=== PATIENT | male | born 1935 | race Caucasian/White ===

== ENCOUNTER → 2020-05-15 | Day surgery (SDC) | payer MEDICARE ==
[~2020-05-15] VITALS: Ht 180.3 cm; Wt 74.8 kg
[~2020-05-15] MED LIST: APPLE CIDER VI600 MG PO; ASPIRIN EC81 MG PO; CIPRO500 MG PO; FLAX OIL1000 MG PO; FLEXERIL5 MG PO; FLOMAX 0.4 MG0.4 MG PO; GABAPENTIN100 MG PO; LIPITOR40 MG PO; PREDNISONE2.5 MG PO; PREDNISONE5 MG PO; SUPER COLON CLEANSE PO; TAMSULOSIN HCL0.4 MG PO; TRAMADOL HCL50 MG PO; URINOZINC PROS1 EACH PO; VOLTAREN ARTHRI20 GM TOP; [UNRECOGNIZED DRUG - OTHER] PO
== END | disposition home or self-care (01) ==
LOC: FAS 06:05
DX: D12.5 Benign neoplasm of sigmoid colon (principal); K57.31 Diverticulosis of large intestine without perforation or abscess with bleeding; I25.10 Atherosclerotic heart disease of native coronary artery without angina pectoris; E85.9 Amyloidosis, unspecified; J61 Pneumoconiosis due to asbestos and other mineral fibers; Z85.6 Personal history of leukemia; Z86.010 Personal history of colon polyps; Z87.891 Personal history of nicotine dependence; Z79.899 Other long term (current) drug therapy; Z88.0 Allergy status to penicillin; Z95.1 Presence of aortocoronary bypass graft
CPT/HCPCS: 88305; J2704; J7120

== ENCOUNTER 2020-08-17 13:23 | Emergency (ER) | payer MEDICARE ==
[~2020-08-17 13:23] MED LIST changes: -CIPRO500 MG PO; -PREDNISONE2.5 MG PO; -VOLTAREN ARTHRI20 GM TOP
[2020-09-07] MEDS ORDERED: TRAMADOL HCL50 MG PO (16:52)
[2020-10-23] MEDS ORDERED: PREDNISONE2.5 MG PO (13:02)
[2020-10-23] MEDS ORDERED: VOLTAREN ARTHRI20 GM TOP (13:20)
== END 2020-08-17 15:39 | disposition home or self-care (01) ==
LOC: FER 13:23
DX: N40.1 Benign prostatic hyperplasia with lower urinary tract symptoms (principal); R33.8 Other retention of urine; Z88.0 Allergy status to penicillin
CPT/HCPCS: 87088

== ENCOUNTER 2020-09-24 17:02 | Emergency (ER) | payer MEDICARE ==
[2020-09-24 19:02] LABS: BILIRUBIN NEGATIVE (NEGATIVE); BLOOD 3+ Ery/uL (NEGATIVE); CLARITY CLOUDY (CLEAR); COLOR YELLOW (YELLOW); GLUCOSE (U) NORMAL (NORMAL); LEUKOCYTES 3+ Leu/uL (NEGATIVE); NITRITE POSITIVE (NEGATIVE); PROTEIN TRACE (LOW) mg/dL (NEGATIVE); SPECIFIC GRAVITY <=1.005 (1.001-1.030); UROBILINOGEN 0.2 mg/dL (0.2-1.0)
[2020-09-24 19:06] LABS: BACTERIA 4+; MUCOUS MODERATE; URINARY WBC TNTC
[2020-10-23] MEDS ORDERED: PREDNISONE2.5 MG PO (13:02)
[2020-10-23] MEDS ORDERED: VOLTAREN ARTHRI20 GM TOP (13:20)
== END 2020-09-24 19:15 | disposition home or self-care (01) ==
LOC: FER 17:02
PROVIDERS: Emergency Medicine
DX: R33.9 Retention of urine, unspecified (principal); J44.9 Chronic obstructive pulmonary disease, unspecified; Z95.1 Presence of aortocoronary bypass graft; Z85.6 Personal history of leukemia; Z88.0 Allergy status to penicillin
CPT/HCPCS: 81001; 87088

== ENCOUNTER 2020-10-03 03:52 | Emergency (ER) | payer MEDICARE ==
[2020-10-03 04:33] LABS: BILIRUBIN NEGATIVE (NEGATIVE); BLOOD 2+ Ery/uL (NEGATIVE); CLARITY CLEAR (CLEAR); COLOR YELLOW (YELLOW); GLUCOSE (U) NORMAL (NORMAL); LEUKOCYTES 1+ Leu/uL (NEGATIVE); NITRITE NEGATIVE (NEGATIVE); PROTEIN 1+ mg/dL (NEGATIVE); SPECIFIC GRAVITY 1.025 (1.001-1.030); UROBILINOGEN 0.2 mg/dL (0.2-1.0)
[2020-10-03 04:43] LABS: BACTERIA 2+; CALCIUM OXALATE CRYSTALS MODERATE; MUCOUS TRACE; URINARY RBC 20-50; URINARY WBC TNTC
[2020-10-23] MEDS ORDERED: PREDNISONE2.5 MG PO (13:02)
[2020-10-23] MEDS ORDERED: VOLTAREN ARTHRI20 GM TOP (13:20)
== END 2020-10-03 05:35 | disposition home or self-care (01) ==
LOC: FER 03:52
PROVIDERS: Emergency Medicine
DX: R33.9 Retention of urine, unspecified (principal); Z98.890 Other specified postprocedural states; Z87.442 Personal history of urinary calculi; Z88.0 Allergy status to penicillin
CPT/HCPCS: 81001; 87088; 99283

== ENCOUNTER 2020-10-06 18:29 | Emergency (ER) | payer MEDICARE ==
[2020-10-06 20:48] LABS: BILIRUBIN NEGATIVE (NEGATIVE); BLOOD 3+ Ery/uL (NEGATIVE); CLARITY HAZY (CLEAR); COLOR YELLOW (YELLOW); GLUCOSE (U) NORMAL (NORMAL); LEUKOCYTES 1+ Leu/uL (NEGATIVE); NITRITE NEGATIVE (NEGATIVE); PROTEIN 2+ mg/dL (NEGATIVE); SPECIFIC GRAVITY >=1.030 (1.001-1.030); UROBILINOGEN 0.2 mg/dL (0.2-1.0); pH 5.5 (5.0-9.0)
[2020-10-06 20:55] LABS: URINARY WBC TNTC
[2020-10-06 20:56] LABS: AMORPHOUS URATES CRYSTALS TRACE; BACTERIA 2+; CALCIUM OXALATE CRYSTALS LARGE
[2020-10-06] MEDS ORDERED: CIPRO500 MG PO (21:09)
[2020-10-23] MEDS ORDERED: PREDNISONE2.5 MG PO (13:02)
[2020-10-23] MEDS ORDERED: VOLTAREN ARTHRI20 GM TOP (13:20)
== END 2020-10-06 21:35 | disposition home or self-care (01) ==
LOC: FER 18:29
PROVIDERS: Emergency Medicine Emergency Medical Services
DX: T83.028A Displacement of other urinary catheter, initial encounter (principal); R33.9 Retention of urine, unspecified; N30.00 Acute cystitis without hematuria; Z88.0 Allergy status to penicillin; Z98.890 Other specified postprocedural states; Y84.6 Urinary catheterization as the cause of abnormal reaction of the patient, or of later complication, without mention of misadventure at the time of the procedure
CPT/HCPCS: 81001; 87088

== ENCOUNTER 2021-02-03 17:05 | Emergency (ER) | payer MEDICARE ==
[~2021-02-03 17:05] MED LIST changes: +CIPRO500 MG PO; +PREDNISONE2.5 MG PO; +VOLTAREN ARTHRI20 GM TOP
[2021-02-03 19:53] LABS: BILIRUBIN NEGATIVE (NEGATIVE); BLOOD TRACE-INTACT Ery/uL (NEGATIVE); CLARITY CLEAR (CLEAR); COLOR YELLOW (YELLOW); GLUCOSE (U) NORMAL (NORMAL); LEUKOCYTES 2+ Leu/uL (NEGATIVE); NITRITE POSITIVE (NEGATIVE); PROTEIN NEGATIVE (NEGATIVE); SPECIFIC GRAVITY 1.025 (1.001-1.030); UROBILINOGEN 0.2 mg/dL (0.2-1.0); pH 5.5 (5.0-9.0)
[2021-02-03 19:57] LABS: BACTERIA 3+; URINARY WBC TNTC
[2021-02-03 20:43] LABS: BASOPHIL 0 % (0-2); EOSINOPHIL 0.1 % (0-7); HCT 41.7 % (42.0-52.0); HGB 13.6 g/dl (13.2-18.0); LYMPHOCYTE 46.7 % (15-48); MCH 31.9 pg (25.0-31.0); MCHC 32.6 g/dL (32.0-36.0); MCV 97.9 fL (78.0-100.0); MPV 9.3 fL (6.0-9.5); NRBC 0; PLT 162 K/uL (150-400); RBC 4.26 M/uL (4.70-6.00); RDW 13.7 % (11.5-14.0); WBC 8.4 K/uL (4.0-10.5)
[2021-02-03 21:19] LABS: INFLUENZA A NAA NEGATIVE (NEGATIVE); LACTIC ACID 0.9 mmol/L (0.4-1.9)
[2021-02-03 21:21] LABS: CORONAVIRUS 2019 SARS-COV-2 POSITIVE (NEGATIVE); PRO-BNP 169 pg/mL (<450)
[2021-02-03 21:26] LABS: ALBUMIN 3.3 g/dL (3.4-5.0); BILIRUBIN - TOTAL 0.4 mg/dL (0.2-1.0); BUN/CREAT RATIO (CALC) 17.9 RATIO; CREATININE 0.78 mg/dL (0.67-1.17); GLOBULIN (CALCULATION) 3.1 g/dL; TOTAL PROTEIN 6.4 g/dL (6.4-8.2)
[2021-02-03] MEDS ORDERED: TESSALON PERLE100 M1 PO (23:31)
[2021-02-03] MEDS ORDERED: CEFDINIR300 MG PO (23:31)
[2021-02-03] MEDS ORDERED: DEXAMETHASONE 2M2 MG PO (23:32)
== END 2021-02-04 01:15 | disposition home or self-care (01) ==
LOC: FER 17:05
PROVIDERS: Emergency Medicine Emergency Medical Services; Internal Medicine
DX: U07.1 COVID-19 (principal); N39.0 Urinary tract infection, site not specified; I25.810 Atherosclerosis of coronary artery bypass graft(s) without angina pectoris; Z88.0 Allergy status to penicillin; Z98.890 Other specified postprocedural states; Z79.899 Other long term (current) drug therapy; Z23 Encounter for immunization
CPT/HCPCS: 36415; 36600; 71250; 80053; 81001; 82803; 83605; 83880; 84484; 85025; 93005; J0696; J2930; M0243; Q0244; U0002